=== PATIENT | male | born 1960 | race Caucasian/White ===

== ENCOUNTER 2017-02-20 08:27 | Outpatient (CLI) | payer MEDICARE | END 2017-02-20 08:28 | disposition critical access hospital (66) | LOC: EMS 08:27 | PROVIDERS: ATTEND Surgery | DX: R42 Dizziness and giddiness (principal) | CPT/HCPCS: A0425; A0429 ==

== ENCOUNTER 2017-02-20 08:47 | Observation (INO) | payer MEDICARE ==
[2017-02-20] MEDS ORDERED: SODIUM CHLORIDE 0.9% 1,000 ML IV ONE (09:05)
[2017-02-20] MEDS ORDERED: SODIUM CHLORIDE FLUSH 0.9% 10 ML SYRINGE IVP ONE (09:08)
--- NOTE | 2017-02-20 09:09 | ED Physician Documentation ---
History of Present Illness - Stated complaint Stated Complaint: DIZZINESS - Chief complaint Chief Complaint: Neuro - History obtained from History obtained from: Patient, Family - History of Present Illness Timing: Last night Pain level max: 4 Pain level now: 4 Improved by: rest Worsened by: movement - Additonal information Additional information: Patient is a 56-year-old male who is deaf. Sign language interpretation was provided using [employer] tablet. Patient and his state that he took 3 ibuprofen last night for neck pain and felt like he became lightheaded after that and near syncopal throughout the night 2-3 times. states he is slower to respond than usual this morning. He denies any headache at this time. Does have a history of DVT and pulmonary embolus following neck surgery in 2013. Is not currently on any medications. Denies any chest pain, shortness of breath, nausea, vomiting. States ate and drink normally yesterday. Patient states that the room is not spinning. He just feels lightheaded and "slow" States the double vision is horizontal. Resolved with covering the L eye, but not the R eye. Review of Systems Ten Systems: 10 systems reviewed and negative Constitutional: denies: Fever, Chills Ears: denies: Ear pain Nose: denies: Rhinorrhea / runny nose, Congestion Throat: denies: Sore throat Cardiac: denies: Chest pain / pressure Respiratory: denies: Cough GI: denies: Nausea, Vomiting, Diarrhea Skin: denies: Rash Musculoskeletal: reports: Neck pain (chronic and unchanged). denies: Back pain Neurologic: denies: Focal weakness, Numbness, Head injury, LOC PD PAST MEDICAL HISTORY - Past Medical History Cardiovascular: Deep vein thrombosis, Pulmonary embolism Respiratory: COPD HEENT: Chronic hearing loss Musculoskeletal: Chronic back pain - Past Surgical History Past Surgical History: Yes Ortho: Hip replacement, Spine surgery, Other - Present Medications Home Medications: Ambulatory Orders Medication Instructions Recorded Confirmed No Known Home Medications [No 02/20/17 02/20/17 Known Home Medications] - Allergies Allergies/Adverse Reactions: Allergies Allergy/AdvReac Type Severity Reaction Status Date / Time No Known Drug Allergies Allergy Verified 02/20/17 08:53 - Social History Does the pt smoke?: No Smoking Status: Never smoker Does the pt drink ETOH?: Yes Does the pt have substance abuse?: No - Immunizations Immunizations are current?: Yes PD ED PE NORMAL - Vitals Vital signs reviewed: Yes - General General: Alert and oriented X 3, No acute distress - HEENT HEENT: Atraumatic, PERRL, EOMI, Ears normal, Moist mucous membranes, Pharynx benign - Neck Neck: Supple, no meningeal sign - Cardiac Cardiac: RRR - Respiratory Respiratory: No respiratory distress, Clear bilaterally - Abdomen Abdomen: Soft, Non tender, Non distended - Back Back: No spinal TTP - Derm Derm: Warm and dry, No rash - Extremities Extremities: No edema, No calf tenderness / cord - Neuro Neuro: Alert and oriented X 3, steam table attendant 2-12 intact, No motor deficit, No sensory deficit, Other (slow speech) - Psych Psych: Normal mood, Normal affect Results - Vitals Vitals: Vital Signs - 24 hr 02/20/17 02/20/17 02/20/17 08:47 09:17 09:49 Temperature 36.1 C L Heart Rate 64 63 63 Respiratory 16 16 16 Rate Blood Pressure 118/104 H 126/75 128/77 O2 Saturation 98 99 97 02/20/17 02/20/17 02/20/17 11:05 12:00 13:25 Temperature Heart Rate 62 65 63 Respiratory 16 16 18 Rate Blood Pressure 101/81 H 143/84 H 145/76 H O2 Saturation 98 98 96 02/20/17 15:28 Temperature Heart Rate 62 Respiratory 15 Rate Blood Pressure 145/79 H O2 Saturation 97 Oxygen O2 Source Room air - EKG (time done) 0901 Rate: Rate (enter#) (62) Rhythm: NSR Gowen: Normal Intervals: Normal [place] QRS: Normal Ischemia: Normal ST segments - Labs Labs: Laboratory Tests 02/20/17 02/20/17 02/20/17 09:12 09:12 10:09 WBC 2.9 L RBC 4.22 L Hgb 14.1 Hct 40.9 L MCV 96.8 H MCH 33.3 H MCHC 34.4 RDW 13.2 Plt Count 85 L MPV 7.1 L Neut # 1.7 Lymph # 0.8 L Irwin # 0.3 Eos # 0.0 Baso # 0.0 Absolute Nucleated RBC 0.00 Nucleated RBCs 0.0 Manual Slide Review Indicated Platelet Estimate DECREASED (<130,000) RBC Morph Micro Appear NORMAL APPEARANCE Sodium 138 Potassium 4.0 Chloride 106 Carbon Dioxide 25 Anion Gap 7.0 BUN 14 Creatinine 0.7 Estimated GFR (MDRD) 116 Glucose 115 H Calcium 8.9 Total Bilirubin 0.7 AST 38 ALT 40 Alkaline Phosphatase 59 Total Protein 6.4 L Albumin 3.7 Globulin 2.7 Albumin/Globulin Ratio 1.4 Lipase 46 Urine Color YELLOW Urine Clarity CLEAR Urine pH 6.0 Ur Specific [place] 1.010 Urine Protein NEGATIVE Urine Glucose (UA) NEGATIVE Urine Ketones NEGATIVE Urine Occult Blood NEGATIVE Urine Nitrite NEGATIVE Urine Bilirubin NEGATIVE Urine Urobilinogen 0.2 (NORMAL) Ur Leukocyte Esterase NEGATIVE Ur Microscopic Review NOT INDICATED Urine Culture Comments NOT INDICATED - Rads (name of study) CT head Radiology: Prelim report reviewed, EMP read contemporaneously, See rad report ( Question of small focal area of edema in the right frontoparietal region suggesting possible early ischemic CVA. No mass effect or hemorrhage. MRI of the head without and with contrast should be considered for further assessment. ) CT angio head/neck Radiology: Prelim report reviewed, EMP read contemporaneously, See rad report ( HEAD CT Absent sulcation over the anterior/middle frontal lobes bilaterally of uncertain etiology and significance. This suggests the possibility of localized brain swelling. The burnett-white differentiation in the frontal lobes is not as well-defined as elsewhere within the brain. However, there is no cortical hypodensity to suggest infarction. Recommend further assessment with contrast- enhanced brain MRI. CT ANGIOGRAM NECK No significant stenosis is identified in the extracranial carotid or vertebral arteries. In addition, there is no evidence of dissection. CT ANGIOGRAM HEAD Unremarkable study. No evidence of occlusion or hemodynamically significant stenosis affecting main branches of the anterior or posterior circulations. ) PD MEDICAL DECISION MAKING - ED course Complexity details: reviewed results, re-evaluated patient, considered differential, d/w patient, d/w family, d/w process consultant ED course: Patient is a 56-year-old male who presents to the emergency department with what appears to be a stroke today. His NIH stroke scale is 1. We will place the patient in the hospital for further evaluation including likely MRI, echocardiogram and risk stratification for future strokes as well as medical management. Discussed the case with the hospitalist, Dr. Castañeda at approximately 12: 30 PM and she accepts. Patient was given aspirin in the emergency department. This document was made in part using voice recognition software. While efforts are made to proofread this document, sound alike and grammatical errors may occur. Departure - Departure Disposition: 66 [facility] DC/Xfer Clinical Impression: Cerebrovascular accident (CVA) Qualifiers: CVA mechanism: unspecified Qualified Code(s): I63.9 - Cerebral infarction, unspecified Condition: Stable Discharge Date/Time: 02/20/17 17:16 NIHSS - Time Time: 09:05 - Level of Consciousness Level of consciousness: (0) Alert, Keenly responsive LOC Questions: (0) Answers both Q's correct LOC Commands: (0) Performs both correctly - Gaze Best Gaze: (0) Normal - Visual Visual: (0) No loss - Facial Palsy Facial Palsy: (0) Normal, symmetrical movement - Motor Arms (both separate) Motor Arm (right): (0) No drift Motor Arm (left): (0) No drift - Motor Legs (both separate) Motor Leg (right): (0) No drift Motor Leg (left): (0) No drift - Limb Ataxia Limb Ataxia: (0) Absent - Sensory Sensory: (0) Normal - Best Language Best Language: (1) [id number] - Dysarthria Dysarthria: (0) Normal - Extinction and Inattention (formally neg Extinction and inattention: (0) No abnormality - Total Score/Results Total Score/Result: 1
[2017-02-20 09:25] LABS: BASOPHILS % (AUTO) 0.9 %; EOSINOPHILS % (AUTO) 1.5 %; HCT - HEMATOCRIT 40.9 % (42.0-52.0); HGB - HEMOGLOBIN 14.1 g/dL (14.0-18.0); LYMPHOCYTES # (AUTO) 0.8 10^3/uL (1.5-3.5); LYMPHOCYTES % (AUTO) 27.9 %; MEAN CORPUSCULAR HEMOGLOBIN 33.3 pg (27.0-31.0); MEAN CORPUSCULAR HGB CONC 34.4 g/dL (32.0-36.0); MEAN CORPUSCULAR VOLUME 96.8 fL (80.0-94.0); MEAN PLATELET VOLUME 7.1 fL (7.4-11.4); MONOCYTES # (AUTO) 0.3 10^3/uL (0.0-1.0); MONOCYTES % (AUTO) 9.9 %; NEUTROPHILS # (AUTO) 1.7 10^3/uL (1.5-6.6); NEUTROPHILS % (AUTO) 59.8 %; RED BLOOD COUNT 4.22 10^6/uL (4.70-6.10); RED CELL DISTRIBUTION WIDTH 13.2 % (12.0-15.0); UNCORRECTED WHITE BLOOD COUNT 2.9 x10^3/uL; WHITE BLOOD COUNT 2.9 x10^3/uL (4.8-10.8)
[2017-02-20 09:38] LABS: ALBUMIN/GLOBULIN RATIO 1.4 (1.0-2.2); BILIRUBIN,TOTAL 0.7 mg/dL (0.2-1.0); CALCIUM 8.9 mg/dL (8.5-10.3); CREATININE 0.7 mg/dL (0.6-1.2); TOTAL PROTEIN 6.4 g/dL (6.7-8.2)
[2017-02-20] MEDS ORDERED: IOPAMIDOL-300 100 ML VIAL IVP ONE (09:51)
--- NOTE | 2017-02-20 10:00 | CT Preliminary Report ---
Exam: CT Head W/O IMPRESSION: Question of small focal area of edema in the right frontoparietal region suggesting possi ble early ischemic CVA. No mass effect or hemorrhage. MRI of the head without and with contrast should be considered for further assessment. [facility] SITE ID: [id number]
--- NOTE | 2017-02-20 10:02 | CT Report ---
EXAM: CT HEAD WITHOUT CONTRAST EXAM DATE: 02/20/2017 09:50 AM. CLINICAL HISTORY: Diplopia and mild expressive aphasia in a 56-year-old male. COMPARISON: None. TECHNIQUE: Multiaxial CT images were obtained from the foramen magnum to the vertex. IV contrast: Non e. Reformats: Coronal. In accordance with CT protocol optimization, one or more of the following dose reduction techniques w ere utilized for this exam: automated exposure control, adjustment of mA and/or KV based on patient s ize, or use of iterative reconstructive technique. FINDINGS: Strandy linear metallic artifact from likely hearing aid posterior to the right ear, mildly degrading the study. Parenchyma: No intraparenchymal hemorrhage. Question of small area of focal edema in the right fronto parietal region. No mass or hemorrhage. Leal-white differentiation is distinct. Extraaxial Spaces: Normal for age. No subdural or epidural collections identified. Ventricles: Normal in size and position. Sinuses: Imaged paranasal sinuses, orbits, and mastoids show no significant abnormality. The bilatera l nasal antral windows with partial resection of the ethmoid air cells bilaterally. Bones: No evidence of fracture or calvarial defect. Other: None. IMPRESSION: Question of small focal area of edema in the right frontoparietal region suggesting possi ble early ischemic CVA. No mass effect or hemorrhage. MRI of the head without and with contrast should be considered for further assessment. [facility] Referring Provider Line: [phone] SITE ID: [id number]
[2017-02-20 10:06] LABS: PLATELET ESTIMATE, MANUAL DECREASED (<130,000) (NORMAL)
[2017-02-20 10:22] LABS: BILIRUBIN,URINE NEGATIVE (NEGATIVE)
[2017-02-20 10:24] LABS: UA CHARGE (STRIP ONLY) YES; UR CULTURE IF IND NOT INDICATED
--- NOTE | 2017-02-20 10:52 | CT Preliminary Report ---
Exam: CT Neck Angio Impression: Head CT Absent sulcation over the anterior/middle frontal lobes bilaterally of uncertain etiology and signifi cance. This suggests the possibility of localized brain swelling. The burnett-white differentiation in t he frontal lobes is not as well-defined as elsewhere within the brain. However, there is no cortical hypodensity to suggest infarction. Recommend further assessment with contrast-enhanced brain MRI. CT angiogram neck No significant stenosis is identified in the extra cranial carotid or vertebral arteries. In addition , there is no evidence of dissection. CT angiogram head Unremarkable study. No evidence of occlusion or hemodynamically significant stenosis affecting main b ranches of the anterior or posterior circulations. SITE ID: [id number]
[2017-02-20] MEDS ORDERED: ASPIRIN CHEW 81 MG TABLET PO STA (11:43)
[2017-02-20] MEDS ORDERED: ASPIRIN 325 MG TABLET PO ONE (11:52)
--- NOTE | 2017-02-20 12:21 | CT Report ---
REVISED: THIS REPORT WAS ORIGINALLY SIGNED ON 02/20/17 @ 1221. ORDERS LINKED ON 02/23/2017. EXAM: CT head without and with contrast and CT angiogram neck and head INDICATION: 56-year-old male with diplopia and expressive aphasia. TECHNIQUE: CT angiogram neck and head: 100 mL of Isovue-300 contrast were injected at a rapid rate through a large-bore right antecubital intravenous catheter. The neck and head were scanned helically during arterial phase. In addition, MIP reconstructions have been generated in multiple projections. Significant arterial stenoses will be assessed using NASCET type measurements. In accordance with CT protocol optimization, one or more of the following dose reduction techniques were utilized for this exam: automated exposure control, adjustment of mA and/or KV based on patient size, or use of iterative reconstructive technique. COMPARISON: Head CT 02/20/2017 at 9:30 a.m. FINDINGS: HEAD CT - A hearing aid on the right had not been removed for this examination. There is associated beam-hardening artifact that limits evaluation of the brain. Ventricular size is normal. There is absence of normal sulcation in the anterior and mid frontal lobes bilaterally, suggesting the possibility of localized brain swelling. In addition , the burnett-white differentiation is not as well defined as elsewhere within the brain; however, no cortical hypodensity is demonstrated. There is multifocal white matter disease in the supratentorial brain, manifested as ill-defined areas of low attenuation in the periventricular, deep and subcortical white matter of the parietal and posterior frontal lobes bilaterally. No intracranial hemorrhage or abnormal extra-axial fluid collection. No enhancing intracranial space-occupying mass lesion is demonstrated. There is normal intravascular contrast enhancement in the dural venous sinuses and deep venous structures. The mastoid air cells and middle ear cavities are clear. The imaged paranasal sinuses are essentially clear. CT ANGIOGRAM NECK - There is normal branching of the aortic arch. There is minor calcified plaque at the origin of the left common carotid artery without significant associated stenosis. The first order supraaortic arteries appear widely patent. Right carotid artery: There is minimal calcified plaque at the carotid bifurcation without associated stenosis. Left carotid artery: There is minimal calcified atherosclerotic plaque at the carotid bifurcation without associated stenosis. Right vertebral artery: Diffusely hypoplastic. Small size makes assessment very difficult; however, grossly it appears patent from its origin to its distal V3 segment. No obvious focal pathology is demonstrated. Left vertebral artery: The left vertebral artery is the dominant vertebral artery in this patient. There is calcified plaque at the origin; however, it does not appear to be causing significant stenosis at the origin. The V1, V2 and V3 segments appear patent throughout. Postsurgical changes are noted in the cervical spine with evidence of previous decompressive laminectomies at C3, C4 and C5. There is absence of normal segmentation of the C4 and C5 vertebral bodies. CT ANGIOGRAM HEAD - There is calcified atherosclerotic plaque scattered throughout the carotid siphons bilaterally. No associated hemodynamically significant ICA stenosis. No ICA aneurysm is identified. The A1 segments of the anterior cerebral arteries are essentially codominant. No anterior communicating artery is identified. There appears to be good filling of the A2 and distal ALIN branches. No obvious ALIN branch occlusion is demonstrated. The middle cerebral arteries are unremarkable. No aneurysm is demonstrated and there is no evidence of occlusion or hemodynamically significant stenosis affecting main branches of either MCA. There appear to be a similar number of opacified M3 and M4 branches bilaterally. Posterior circulation: The right vertebral artery is hypoplastic but patent to the vertebrobasilar junction. No right PICA is identified. The left vertebral artery and left PICA are patent. The basilar artery is small and tortuous but otherwise normal. No stenosis is demonstrated. The basilar artery effectively terminates as the bilateral superior cerebellar arteries. The P1 segments of the posterior cerebral arteries are developmentally absent. There are fairly large posterior communicating arteries that supply the P2 and distal MULTI NEEDLE MACHINE OPERATOR branches bilaterally. These represent known anatomical variants ( origins of the posterior cerebral arteries). No aneurysms are seen arising from the basilar artery trunk or apex. IMPRESSION: HEAD CT Absent sulcation over the anterior/middle frontal lobes bilaterally of uncertain etiology and significance. This suggests the possibility of localized brain swelling. The burnett-white differentiation in the frontal lobes is not as well-defined as elsewhere within the brain. However, there is no cortical hypodensity to suggest infarction. Recommend further assessment with contrast- enhanced brain MRI. CT ANGIOGRAM NECK No significant stenosis is identified in the extracranial carotid or vertebral arteries. In addition, there is no evidence of dissection. CT ANGIOGRAM HEAD Unremarkable study. No evidence of occlusion or hemodynamically significant stenosis affecting main branches of the anterior or posterior circulations. Referring Provider Line: [phone] SITE ID: [id number]
[2017-02-20] MEDS ORDERED: SODIUM CHLORIDE FLUSH 0.9% 10 ML SYRINGE IVP PRN (16:26)
[2017-02-20] MEDS: SODIUM CHLORIDE FLUSH 0.9% 10 ML SYRINGE IVP SCH (21:10)
--- NOTE | 2017-02-20 21:23 | HISTORY & PHYSICAL EXAMINATION ---
DATE OF OBSERVATION: 02/20/2017 History is obtained from patient and , and chart review. Decision making was also assisted by Dr. Shaw from Neurology at [facility]. CHIEF COMPLAINT: Diplopia and lightheadedness. HISTORY OF PRESENT ILLNESS: This is a 56-year-old white male who has congenital deafness, but does have some hearing and uses a hearing aid. He has a history of cervical spine surgery, as well as foot surgery; and a history of a DVT for which he was on Xarelto for 6 months, this was stopped in 06/2015. The patient currently takes no medications. The patient states that yesterday he developed a posterior neck headache for which he took some Motrin and started to get lightheadedness. He thought the lightheadedness was initially from the Motrin, but Motrin has not done this in the past. The patient layed down and was able to go to sleep. He normally gets up approximately 2-3 times per night for urinating, and during each of those episodes, he was very lightheaded and had a staggering gait, "as if he were drunk." During one of the episodes while standing, he thought he was going to faint. He was able to bring himself back to bed. Upon awakening in the morning, his noticed that he had new slower speech, and he complained of double vision. He came to the emergency room. He is visiting [facility], lives in [place]. Since being evaluated in the emergency room, there have been stable continued symptoms, no worsening or improvement, he reports. MEDICATIONS AT HOME: None. ALLERGIES: NONE. SOCIAL HISTORY: The patient never smoked cigarettes, and drinks social alcohol. He denies drug abuse. He lives with his . He uses an iPad-assisted device for communication and does have normal speech, which is rather quiet normally, and he also communicates with sign language. The also has a hearing loss and communicates to him in sign language, as well as with the tablet, which I witnessed. PAST SURGERIES: As above. REVIEW OF SYSTEMS: He denies any fever, neck stiffness, vomiting, full syncope, palpitations, SOB or chest pain. He has never had this type of symptom before. The rest of the detailed review of systems is negative. PHYSICAL EXAMINATION GENERAL: Physical exam reveals a white male who is in no visible distress. VITAL SIGNS: Blood pressure 101/81, pulse is in the 60s. He is in sinus rhythm. He is afebrile. HEENT: A hearing aid in the right ear, and the deafness. He has moist oral mucosa. The extraocular movements are intact. His pupils have a sluggish but present response, and there are no signs of nystagmus or unequal pupils. Facial musculature is symmetric. He has normal strength of the facial muscles, as well as sensation to light touch. The patient confirmed that he had diplopia when he was looking out of his right eye (left eye shut). He had normal vision looking out of his left eye (right eye shut). When both eyes were used, he complained of diplopia. There was no nystagmus. NECK: His neck shows no JVD or carotid bruits. CHEST: Clear. HEART: Sounds are normal without murmurs. ABDOMEN: Soft, obese with normal bowel sounds. EXTREMITIES: No clubbing, cyanosis, or edema. NEUROLOGIC: Neurologically is as on the HEENT portion, and he has normal finger- nose-finger exam and normal strength equally of both upper and lower extremities. He has normal sensation to light touch of upper and lower extremities. LABORATORY Sodium 138, potassium 4.0, BUN 14, creatinine 0.7. Normal liver tests. Normal lipase. White blood count 2.9, platelet count 85, hemoglobin normal at 14.1. Urinalysis was within normal limits. IMAGING A head CT was done, which showed questionable small focal area of edema in the right frontoparietal region, suggesting possible early ischemic CVA, but no mass effect or hemorrhage, and an MRI of the head was recommended. He had a CT angio of the head and neck also done, and this showed absence of normal sulcation in the anterior and mid frontal lobes bilaterally, suggesting the possibility of localized brain swelling. The burnett-white differentiation is not as well defined as elsewhere within the brain; however, there are no cortical hypodensities. There is multifocal white matter disease in the supratentorial brain, manifested as ill-defined areas of a low attenuation in the periventricular, deep, and subcortical white matter of the parietal and posterior frontal lobes bilaterally. There is no hemorrhage or fluid accumulation, and no masses are seen. The vasculature is found to have mild plaque but no stenoses, and the middle cerebral arteries are unremarkable. The posterior circulation showed that the right vertebral artery was hypoplastic but patent to the VB junction. There was no right PICA. IMPRESSION/DIAGNOSES WITH PLAN 1. Diplopia. Discussion with a neurology specialist at [facility] was undertaken. The patient will continue to get aspirin, which was started in the emergency room. He will have an MRI with and without contrast of the brain for further evaluation of his neurologic symptoms. The patient will also have an echocardiogram to evaluate for cardiac source of emboli because of the bilateral nature of the abnormal brain imaging. A followup phone conversation will be undertaken with neurology specialist after the brain MRI. 2. Lightheadedness. Orthostatic vital signs will be checked. Repeat electrolytes and BUN and creatinine will be undertaken. The brain MRI, to evaluate for other areas of abnormality, will be done, as cerebellar areas impact on gait and balance. 3. Congenital deafness. This is stable, and the patient has a hearing aid. 4. Low white blood count. This was seen previously, since in discussion with the doctor at [facility], a low white count was seen previously when he was hospitalized there. This does not appear to be an acute problem, but intermittent or chronic. 5. Low platelet count. Because of this, the patient will not get Lovenox for DVT prophylaxis. This also will need a comparison to prior platelet counts as to whether this is acute or chronic. JOB #: [id number] EXT JOB #:[id number] DEZ
[2017-02-20] MEDS: ACETAMINOPHEN 325 MG TABLET PO PRN (22:24)
[2017-02-21] MEDS: ACETAMINOPHEN 325 MG TABLET PO PRN (05:55)
[2017-02-21] MEDS: SODIUM CHLORIDE FLUSH 0.9% 10 ML SYRINGE IVP SCH ×2 (06:44→13:50)
[2017-02-21] MEDS ORDERED: PANTOPRAZOLE 40 MG TABLET PO SCH (07:00)
[2017-02-21] MEDS ORDERED: ENOXAPARIN 40 MG/0.4 ML SYRINGE SUBQ SCH (09:00)
[2017-02-21] MEDS ORDERED: ASPIRIN 325 MG TABLET PO SCH (09:00)
[2017-02-21] MEDS ORDERED: POLYETHYLENE GLYCOL 3350 17 GM PACKET PO SCH (09:00)
[2017-02-21] MEDS ORDERED: GADOBUTROL 15 MMOL/15 ML VIAL IVP ONE (12:31)
--- NOTE | 2017-02-21 13:53 | MRI Preliminary Report ---
Exam: MRI Brain W/WO IMPRESSION: 1. No acute intracranial abnormality. No acute infarct, mass, hemorrhage, or abnormal enhancement. 2. Mild white matter T2/FLAIR bright signal seen in the cerebral hemispheres. Findings are nonspecifi c. This can be seen secondary to small vessel ischemic change or vasculopathy. [facility] SITE ID: [id number]
--- NOTE | 2017-02-21 13:56 | MRI Report ---
EXAM: MRI BRAIN WITHOUT AND WITH CONTRAST EXAM DATE: 02/21/2017 12:02 PM. CLINICAL HISTORY: Diplopia. Lightheadedness. COMPARISON: CT scan of the head 02/20/2017. TECHNIQUE: Multiplanar, multisequence T1-weighted and fluid-sensitive MR sequences of the brain were performed. Sequences optimized for routine evaluation. Other: Patient was unable to lie flat, and hen ce flexible coil rather than head coil was utilized. Without and with IV Contrast: 12 cc Gadavist. FINDINGS: Brain Volume: Normal for age. Parenchyma/Dura: No masses, infarcts, or hemorrhage. Minimal periventricular with mild deep and subco rtical white matter T2 and FLAIR bright signal is seen in the cerebral hemispheres bilaterally. No co rtical signal abnormality. No abnormal enhancement. Ventricles/Cisterns: No hydrocephalus. No abnormal extra-axial fluid collection or hemorrhage. Orbits: The globes, optic nerve sheath complex, extraocular muscles, and orbital fat are unremarkable . Sella turcica: The pituitary gland, cavernous sinuses, suprasellar cistern, and optic chiasm are unre markable. IAC: The internal auditory canals and cerebellopontine angle cisterns are symmetric and unremarkable. Vasculature: Normal signal flow void is seen in the major arterial structures at the skull base. The dural sinuses are patent and enhance normally. Sinuses: Mild polypoid mucosal thickening is seen inferiorly in the maxillary antra. Mild mucosal thi ckening is seen involving posterior right mastoid air cells. Bones: The skull is intact. Other: None. IMPRESSION: 1. No acute intracranial abnormality. No acute infarct, mass, hemorrhage, or abnormal enhancement. 2. Mild white matter T2/FLAIR bright signal seen in the cerebral hemispheres. Findings are nonspecifi c. This can be seen secondary to small vessel ischemic change or vasculopathy. [facility] Referring Provider Line: [phone] SITE ID: [id number]
[2017-02-21 15:52] VITALS: BP 149/83
--- NOTE | 2017-02-21 16:25 | Discharge Plan ---
Discharge Plan Disposition: 01 Home, Self Care Condition: Fair Prescriptions: Aspirin [Rosetta] 81 mg PO DAILY #30 tablet Pravastatin [Pravachol] 40 mg PO QPM #30 tablet Diet: Cardiac Activity Restrictions: Activity as Tolerated Shower Restrictions: No Driving Restrictions: Yes (Do not drive until cleared to drive by your primary doctor or neurologist) Weight Bearing: Full Weight Instruction Topics: Cholesterol Control No Smoking: If you smoke, Please STOP! Call for help.
--- NOTE | 2017-02-22 07:34 | DISCHARGE SUMMARY ---
DATE OF ADMISSION: 02/20/2017 DATE OF DISCHARGE: 02/21/2017 DISPOSITION: Observation. This is a 56-year-old white male with a history of congenital deafness, but he has some hearing and u ses a hearing aid. He has a history of DVT, for which he was on 6 months of Xarelto, which was finish ed in 06/2015. He currently takes no medications. The patient developed posterior neck pain, then mar ked lightheadedness, abnormal balance and gait, and diplopia, and after no improvement for approximat bart 12 hours, he presented to the emergency room. DISCHARGE DIAGNOSES AND HOSPITAL COURSE 1. Diplopia. The patient had slow improvement, so that by the following day, there was nearly no symp rhea of diplopia which was mostly in the right eye. The patient's CAT scan on the day of evaluation in the emergency room had suspicious findings for bilateral white matter abnormalities, but no evidence of acute stroke or hemorrhage or edema. On the following day he underwent a brain MRI, which showed no evidence of ischemic stroke, no evidence of hemorrhage, and only mild atherosclerosis in the crani al blood vessels. 2. Lightheadedness. The patient did have a set of orthostatic vital signs, which showed a 20 mm drop in systolic blood pressure. After hydration and regular diet, 2 repeat sets of orthostatic blood pres sure showed no change, and he was able to ambulate in the hallway without a gait disturbance, mild de scription of lightheadedness at the end of walking. 3. Congenital deafness, stable. 4. Low white blood count. This was noted to be chronic in comparing his labs to those at a different hospital from 1-1/2 years previous. 5. Low platelet count. Because of a platelet count of 85, he did not receive DVT prophylaxis with Nereida enox while he was at our facility. He did receive adult-dose aspirin at presentation and on the morning, but was discharged with low-dose baby aspirin daily. CONDITION AT DISCHARGE: Stable. MEDICATIONS AT DISCHARGE 1. Aspirin 81 mg p.o. daily. 2. Pravastatin 40 mg p.o. daily. 3. Continue triamcinolone cream p.r.n., which he was on before. RECOMMENDATION: Follow up with his primary care doctor, and with a neurologist. ADDENDUM - CC to his primary doctor: Elijah Burt MD, Hematology/Oncology, [facility]. JOB #: [id number] EXT JOB #:[id number]
== END 2017-02-21 17:38 | disposition home or self-care (01) ==
LOC: ED 08:47 → OBS 16:26
PROVIDERS: ADMIT Internal Medicine; ATTEND Internal Medicine
DX: H53.2 Diplopia (principal); R42 Dizziness and giddiness; H90.5 Unspecified sensorineural hearing loss; D72.819 Decreased white blood cell count, unspecified; D69.6 Thrombocytopenia, unspecified; M54.2 Cervicalgia; Z79.82 Long term (current) use of aspirin; Z79.899 Other long term (current) drug therapy; Z86.718 Personal history of other venous thrombosis and embolism; R29.701 NIHSS score 1; Z98.890 Other specified postprocedural states
CPT/HCPCS: 36415; 70450; 70496; 70498; 70553; 80053; 81003; 83690; 85025; 93005; 93306; 96360; 99285; A9270; A9585; G0378; Q9967; 81001; 87086; 99284

== ENCOUNTER 2022-12-31 11:01 | Emergency (ER) | payer MEDICARE ==
--- NOTE | 2022-12-31 11:14 | ED Physician Documentation ---
PD HPI HEAD INJURY - Stated complaint Stated Complaint: GLF - Chief complaint Chief Complaint: Trauma Hd/Nk - History obtained from History obtained from: Patient, Family - History of Present Illness Mechanism of head injury: Fell Timing - onset: How many days ago (2 days ago, tripped and fell. He is here today due to anticoagulant use, and also that low back was hurting more.) Location of injury: Front, Other (also pain left lower lumbar msucle areas. No radiation to legs nor leg paresis/) Quality of pain: Pain (some headache frontal) Associated symptoms: No: LOC, AMS, Nausea / vomiting Symptoms improve with: Rest Symptoms worsen with: Palpation Contributing factors: Anticoagulated Similar symptoms before: Has not had sx before Review of Systems Constitutional: denies: Fever, Chills Nose: denies: Rhinorrhea / runny nose, Congestion Throat: denies: Sore throat Respiratory: denies: Cough Skin: denies: Abrasion (s), Laceration (s) Musculoskeletal: reports: Back pain. denies: Neck pain PD PAST MEDICAL HISTORY - Past Medical History Cardiovascular: Deep vein thrombosis, Pulmonary embolism Respiratory: COPD HEENT: Chronic hearing loss Musculoskeletal: Chronic back pain - Past Surgical History Past Surgical History: Yes Ortho: Hip replacement, Spine surgery, Other - Present Medications Home Medications: Ambulatory Orders Medication Instructions Recorded Confirmed Aspirin [Rosetta] 81 mg PO DAILY #30 tablet 02/21/17 Pravastatin [Pravachol] 40 mg PO QPM #30 tablet 02/21/17 Triamcinolone Acetonide 1 applic TOP BID 02/21/17 02/21/17 HYDROcod/ACETAM 5/325 [Rye 5/325] 1 ea PO Q6H PRN #18 tablet 12/31/22 tiZANidine [Zanaflex] 4 mg PO Q8H PRN #25 tablet 12/31/22 - Allergies Allergies/Adverse Reactions: Allergies Allergy/AdvReac Type Severity Reaction Status Date / Time No Known Drug Allergies Allergy Verified 12/31/22 11:08 - Social History Does the pt smoke?: No Smoking Status: Never smoker Does the pt drink ETOH?: Yes Does the pt have substance abuse?: No - Immunizations Immunizations are current?: Yes PD ED PE NORMAL - Vitals Vital signs reviewed: Yes - General General: Alert and oriented X 3, No acute distress, Well developed/nourished - HEENT HEENT: No: Atraumatic (minimal tenderness left frontopareitnal area whithout deformity.) - Neck Neck: Supple, no meningeal sign, No adenopathy - Cardiac Cardiac: RRR, No murmur - Respiratory Respiratory: Clear bilaterally Results - Vitals Vitals: Vital Signs - 24 hr 12/31/22 12/31/22 11:08 11:51 Temperature 36.5 C Heart Rate 72 71 Respiratory 16 16 Rate Blood Pressure 140/67 H 125/75 O2 Saturation 98 97 Oxygen O2 Source Room air - Rads (name of study) head CT Relevant Findings:: Prelim report reviewed (no acute injury.), EMP independent interpretation of test, See rad report cervical spine CT Relevant Findings:: Prelim report reviewed (arthritic changes. No acute process. ), See rad report PD Medical Decision Making - ED course Complexity details: reviewed results, considered differential, d/w patient Departure - Departure Disposition: 01 Home, Self Care Clinical Impression: Anticoagulant long-term use, Scalp contusion, Fall from slip, trip, or stumble, Acute myofascial strain of lumbar region Condition: Stable Record reviewed to determine appropriate education?: Yes Prescriptions: HYDROcod/ACETAM 5/325 [Rye 5/325] 1 ea PO Q6H PRN #18 tablet PRN Reason: Pain tiZANidine [Zanaflex] 4 mg PO Q8H PRN #25 tablet PRN Reason: Spasms Comments: The CT scan of your head did not show any signs of skull fracture nor any intracranial bleeding. It was good to get it checked out since you are on the blood thinners. I would expect steady improvement on the scalp contusion. Use Tylenol every 4-6 hours if needed for pain. Your low back CT scan did not show any bony abnormalities of the spine. (There was some arthritic changes but no fractures). For this she can do gentle stretching and heat for the muscles. Again Tylenol every 4-6 hours regularly for the next several days to week. Add tizanidine muscle relaxant and hydrocodone pain medicine as needed for spasms stiffness and pain. I sent prescriptions to the [facility] pharmacy here in [place]. I am prescribing a short course of narcotic pain medication for you. These are potentially dangerous and addictive medications that should be used carefully. These medications may constipate you. Take an tcrr-jbt-[id number] stool softener such as docusate twice daily with plenty of water while taking these medications. If you go 24 hours without a bowel movement, take [id number] MiraLAX, per package instructions. Do not drink or drive while taking these medications. If you received narcotic or sedating medications while in the emergency department do not drive for 24 hours. Store this medication in a safe, secure place and out of reach of children. It is a violation of federal law to give or sell this medication to another person or to use in a manner other than prescribed. The ED will not refill narcotic prescriptions, including prescriptions lost or stolen. You can dispose of unwanted medications at the [facility]'s office or at several pharmacies such as [facility]. Discharge Date/Time: 12/31/22 12:56
[2022-12-31] MEDS ORDERED: ACETAMINOPHEN 325 MG TABLET PO STA (11:22)
[2022-12-31] MEDS ORDERED: HYDROcod/ACETAM 5/325 MG TABLET PO STA (11:22)
[2022-12-31 11:54] VITALS: BP 125/75
--- NOTE | 2022-12-31 12:17 | CT Report ---
PROCEDURE: HEAD WO INDICATIONS: fall 2 days ago, struck head. On Eliquis TECHNIQUE: Noncontrast 4.5 mm thick angled axial sections acquired from the foramen magnum to the vertex. For r adiation dose reduction, the following was used: automated exposure control, adjustment of mA and/or kV according to patient size. COMPARISON: MRI 02/21/2017 FINDINGS: Image quality: Mild motion artifact. CSF spaces: Basal cisterns are patent. Lateral ventricles are symmetric. Volume: Vascular calcifications. Periventricular white matter disease is commonly seen with chronic m icroangiopathy. Volume loss is present. These findings are mild to moderate. Brain: No intracranial hemorrhage. Leal-white differentiation is grossly maintained. Craniofacial structures: No displaced fracture. Sinuses are clear. Orbits are intact. IMPRESSION: No acute intracranial hemorrhage identified Reviewed by: Mike Howard MD on 12/31/2022 12:16 PM PDT Approved by: Mike Howard MD on 12/31/2022 12:16 PM PDT Station ID: [id number]
--- NOTE | 2022-12-31 12:35 | CT Report ---
PROCEDURE: LUMBAR SPINE WO INDICATIONS: fall 2 days ago, low back pain TECHNIQUE: Noncontrast 3 mm thick sections acquired from the T12 level to the sacrum. Sagittal and coronal refo rmats were constructed. For radiation dose reduction, the following was used: automated exposure co ntrol, adjustment of mA and/or kV according to patient size. COMPARISON: None. FINDINGS: Image quality: Excellent. Bones: There is normal bony alignment. No acute vertebral body compression fractures. No suspiciou s lytic or blastic bony lesions. Central spinal caliber is of normal overall caliber. No pars defec ts. T12-L1: No canal stenosis or significant foraminal stenosis. L1-L2: Disc bulge. Facet hypertrophy. No significant canal stenosis. At least mild bilateral neelam inal stenosis. L2-L3: Facet hypertrophy. Mild canal stenosis. At least mild left foraminal stenosis. L3-L4: Posterior disc plus osteophyte. Facet hypertrophy. Moderate to severe canal stenosis. At least moderate left foraminal stenosis. L4-L5: Disc bulge. Facet hypertrophy. Moderate canal stenosis. Moderate to severe right foraminal s tenosis. Moderate left foraminal stenosis. L5-S1: Bilateral facet hypertrophy. No canal stenosis. No significant foraminal stenosis. Soft tissues: No retroperitoneal masses or hematomas. Visualized aorta is normal in caliber. IMPRESSION: 1. No acute compression fractures. 2. Lumbar degenerative change with multilevel canal stenosis, moderate to severe at L3-L4. Reviewed by: José Colindres MD on 12/31/2022 12:34 PM PDT Approved by: José Colindres MD on 12/31/2022 12:34 PM PDT Station ID: [id number]
== END 2022-12-31 12:56 | disposition home or self-care (01) ==
LOC: ED 11:01
DX: S39.012A Strain of muscle, fascia and tendon of lower back, initial encounter (principal); W01.0XXA Fall on same level from slipping, tripping and stumbling without subsequent striking against object, initial encounter; Z79.01 Long term (current) use of anticoagulants; Z86.718 Personal history of other venous thrombosis and embolism
CPT/HCPCS: 36415; 70450; 72131; 99284; A9270